=== PATIENT | female | born 1985 | race Caucasian/White ===

== ENCOUNTER 2018-04-15 16:38 | Emergency (ER) | payer OTHER, MEDICAID, SELFPAY ==
[2018-04-15 16:52] VITALS: BP 108/77; PULSE 110; RESP 20; TEMP 36.8; O2SAT 96; BMI 28.7
[2018-04-15 17:17] VITALS: TEMP 36.8
--- NOTE | 2018-04-15 18:36 | DI.US.S_ITS ---
PROCEDURE: US PELVIC COMPLETE INDICATIONS: CRAMPING, BLEEDING 2 WEEKS POST TECHNIQUE: Real-time scanning was performed of the pelvic organs, with image documentation. Additional endovaginal scanning was necessary due to incomplete visualization of the adnexal and endometrial structures by transabdominal scanning. COMPARISON: [facility] Ultrasound, US, US OB BIOPHYSICAL + UMBILICAL DOPPLER, 03/27/2018, 9:03. FINDINGS: Transabdominal scanning: Limited scanning through the kidneys shows no hydronephrosis. No pathologic free abdominal or pelvic fluid. Endovaginal scanning: Uterus: Uterus is normal in size at 3.8 x 6.0 x 8.0 cm. The endometrium measures 3 mm in combined thickness. A roughly 20 cc focus of low level echoes within internal fluid within the canal is present without internal vascularity. scar is present. Ovaries: Within normal limits IMPRESSION: 1. No evidence of retained products of conception. 2. Post surgical/post sequelae. Dictated by: Jg Blood M.D. on 04/15/2018 at 20:22 Approved by: Jg Blood M.D. on 04/15/2018 at 20:23
--- NOTE | 2018-04-15 18:38 | ED.FEVER ---
HPI - Fever General Chief Complaint: Fever Stated Complaint: FEVER, DIARRHEA Time Seen by Provider: 04/15/18 18:11 Source: patient Mode of arrival: ambulatory Limitations: no limitations History of Present Illness HPI Narrative: patient is a 32-year-old female presenting with diarrhea ongoing for the last 3 days. She has not had any vomiting. She has had body aches a but no documented fever. She has some abdominal cramping but no real pain. The diarrhea is watery nonbloody. She is status post 2 weeks of and tubal ligation done at [facility]. She has some scant vaginal bleeding all only when she wipes. She was having heavier bleeding earlier but that has improved. Currently afebrile. She denies any recent antibiotics. Other family members have also had diarrhea and vomiting illness. Onset (ago): day(s) (3) Related Data Previous Rx's Medication Instructions Recorded sulfamethoxazole-trimethoprim 1 tab PO BID #10 tab 04/15/18 [Bactrim DS] Allergies Allergy/AdvReac Type Severity Reaction Status Date / Time No Known Drug Allergies Allergy Verified 04/15/18 16:52 Review of Systems Review of Systems GENERAL: Denies chills, fatigue, malaise, fever, sweats, travel HEENT: Denies sinus pain, ear pain, sore throat, difficulty swallowing, neck pain RESPIRATORY: Denies dyspnea, cough, wheezing, hemoptysis, sputum. CARDIOVASCULAR: Denies chest pain, palpitations, orthopnea, edema GASTROINTESTINAL: See HPI : Denies dysuria, frequency, incontinence, hematuria, urinary retention, flank pain. MUSCULOSKELETAL: Denies weakness, joint pain, or bony pain SKIN: No rash, no erythema, no pruritus NEUROLOGIC: Denies weakness, dizziness, headache, numbness, change in speech, confusion PSYCHIATRIC: No concerning psychosocial issues. 12 point review of systems is negative except for those stated above and HPI [facility] Medical History Patient denies medical problems (Acute) Surgical History Status post (Acute) Social History Smoking Status: Current every day smoker Social History Smoking Status: Current every day smoker Exam Initial Vital Signs Initial Vital Signs: Vital Signs Temperature 98.2 F 04/15/18 16:52 Pulse Rate 110 H 04/15/18 16:52 Respiratory Rate 20 04/15/18 16:52 Blood Pressure 108/77 04/15/18 16:52 Pulse Oximetry 96 04/15/18 16:52 GENERAL: Well-appearing, well-nourished and in no acute distress. HEENT: Head atraumatic,EOMI, pupils reactive, moist mucous membranes CARDIOVASCULAR: Regular rate and rhythm without murmurs, rubs or gallops. RESPIRATORY: Breath sounds equal bilaterally, no wheezes rales or rhonchi. ABDOMEN: Soft, nontender. Normoactive bowel sounds all 4 quadrants. No guarding or rebound. incision site of clean and dry seems to be healing appropriately. His : No CVA tenderness EXTREMITIES: Normal range of motion, no clubbing or edema. Neurovascularly intact NEUROLOGICAL: Alert and oriented x4.Normal gait and speech. Cranial nerves II through XII grossly intact. SKIN: Warm, dry, no laceration, no petechiae, no rashes or lesions. Course Orders Ordered: ED Orders 04/15/18 18:36 US pelvic complete Stat 04/15/18 18:55 Complete Blood Count AUTO DIFF Stat Comprehensive Metabolic Panel Stat Lipase Stat Urine Culture Stat Urine Microscopic Stat Discontinued Medications Sodium Chloride (Normal Saline 0.9%) 1,000 mls @ 1,000 mls/hr IV CONT CIERA Last Infusion: 04/15/18 20:25 Dose: 1,000 mls/hr Admin: 04/15/18 19:08 Dose: 1,000 mls/hr Vital Signs - 8 hr 04/15/18 16:52 04/15/18 17:17 04/15/18 20:25 Temperature 98.2 F 98.2 F 98.2 F Pulse Rate 110 H 74 Respiratory Rate 20 19 Blood Pressure 108/77 Blood Pressure [Left Arm] 107/69 Pulse Oximetry 96 97 MDM - Fever Lab Data Attestation: I reviewed the patient's lab results. Result diagrams: 04/15/18 18:55 04/15/18 18:55 Lab Results 04/15/18 04/15/18 04/15/18 Range/Units 18:55 18:55 18:55 WBC 7.6 (4.5-11.0) X10^3/uL RBC 4.73 (4.0-5.2) X10^6/uL Hgb 15.9 (12.0-16.0) g/dL Hct 46.3 H (36-46) % MCV 97.9 (80-100) fL MCH 33.5 (26-34) PG MCHC 34.2 (30-36) % RDW 12.5 (11.6-14.8) % Plt Count 399 (150-400) X10^3/uL Neut % (Auto) 49.3 L (50-75) % Lymph % (Auto) 33.0 (25-40) % Cass % (Auto) 10.3 (3-14) % Eos % (Auto) 6.6 H (2-4) % Baso % (Auto) 0.8 (0-2) % Neut # (Auto) 3800 (6912-8037) /uL Lymph # (Auto) 2500 (0548-3185) /uL Cass # (Auto) 800 (0-900) /uL Eos # (Auto) 500 H (0-450) /uL Baso # (Auto) 100 (0-100) /uL Sodium 139 (137-145) mmol/L Potassium 3.9 (3.4-5.1) mmol/L Chloride 108 H (98-107) mmol/L Carbon Dioxide 20 L (22-32) mmol/L BUN 20 H (7-17) mg/dL Creatinine 1.00 (0.52-1.04) mg/dL Estimated GFR > 60.0 (>60) mL/min BUN/Creatinine Ratio 20.0 (6-22) Glucose 97 (70-100) mg/dL Calcium 8.9 (8.4-10.2) mg/dL Total Bilirubin 0.2 (0.2-1.3) mg/dL AST 38 H (14-36) IU/L ALT 59 H (9-52) IU/L Alkaline Phosphatase 112 (38-126) U/L Total Protein 7.5 (6.3-8.2) g/dL Albumin 4.3 (3.5-5.0) g/dL Globulin 3.2 (1.7-4.1) g/dL Albumin/Globulin Ratio 1.3 (1.0-2.8) Lipase 74 (23-300) U/L Urine RBC 5-10/hpf H (0-5/HPF) Urine WBC 10-30/hpf H (0-5/HPF) Ur Squamous Epith Cells 1-5 /hpf Ur Transition Epith Cell 1-5/hpf (0-5/HPF) Calcium Oxalate Crystal Few H (None) Urine Bacteria Moderate (10-30) H (None) Hyaline Casts 5-10/lpf (None) Urine Mucus 1+ H (Negative) Ur Culture Indicated? Specimen cultured Urine Dip Bedside Urine Glucose Negative Bedside Urine Bilirubin + 1 Bedside Urine Ketone +/- 5 Urine Specific [place] 1.030 Bedside Urine Occult Blood +++ Bedside Urine pH 5.5 Bedside Urine Protein +/- 15 Bedside Urine Urobilinogen - Negative Bedside Urine Nitrite - Negative Bedside Urine Leukocytes +/- 15 Esterase Imaging Data Pelvic ultrasound: Radiologist's impression: PROCEDURE: US PELVIC COMPLETE INDICATIONS: CRAMPING, BLEEDING 2 WEEKS POST TECHNIQUE: Real-time scanning was performed of the pelvic organs, with image documentation. Additional endovaginal scanning was necessary due to incomplete visualization of the adnexal and endometrial structures by transabdominal scanning. COMPARISON: [facility] Ul[facility]ound, US, US OB BIOPHYSICAL + UMBILICAL DOPPLER, 03/27/2018, 9:03. FINDINGS: Transabdominal scanning: Limited scanning through the kidneys shows no hydronephrosis. No pathologic free abdominal or pelvic fluid. Endovaginal scanning: Uterus: Uterus is normal in size at 3.8 x 6.0 x 8.0 cm. The endometrium measures 3 mm in combined thickness. A roughly 20 cc focus of low level echoes within internal fluid within the canal is present without internal vascularity. scar is present. Ovaries: Within normal limits IMPRESSION: 1. No evidence of retained products of conception. 2. Post surgical/post sequelae. Dictated by: Jg Blood M.D. on 04/15/2018 at 20:22 MDM Narrative Medical decision making narrative: Patient's abdomen is really quite soft and nontender. At this time I do not see any need for imaging. She is still having some scant vaginal bleeding ultrasound does not show any signs of retained products. She is tolerating oral fluids. She does have some bacteria in her urine she states that she does have some burning with urination. She had a [place] catheter placed 2 weeks ago during surgery. At this time I will treat her for UTI. Other signs and symptoms are consistent with gastroenteritis. Also other family members have had the same symptoms. Discharge Plan Departure Patient Disposition: Home Clinical Impression: Gastroenteritis, UTI (urinary tract infection), Viral infection Discharge Date/Time: 04/15/18 20:28 Interventions: ED Discharge Assessment Last Done: 04/15/18 20:35 Instructions: DI for Viral Gastroenteritis -- Adult, DI for Urinary Tract Infection (UTI) Activity Restrictions/Additional Instructions: *You have been diagnosed with gastroenteritis, UTI *What to do: increase fluid intake with Gatorade like substance, something with sugar and electrolytes to help be replaced or loss of fluid. I anticipate diarrhea should stop and is likely viral. you may require outpatient stool sample with your doctor if this continues *Continue to take medications as directed [At your request you're medications have been faxed to] *Follow up with your primary care provider in 2-3 days *Return to ER if you should have fever, inability to tolerate fluids, increasing pain or any new, worsening or concerning symptoms Prescriptions: New sulfamethoxazole-trimethoprim [Bactrim DS] 800-160 mg tablet 1 tab PO BID Qty: 10 RF: 0 Referrals: Sonyn Sosa MD [Primary Care Provider] -
[2018-04-15 19:07] LABS: Add Manual Diff / Slide Review NO; Basophils Absolute Auto 100 /uL (0-100); Basophils Percent Auto 0.8 % (0-2); Eosinophils Absolute Auto 500 /uL (0-450); Eosinophils Percent Auto 6.6 % (2-4); Hematocrit 46.3 % (36-46); Hemoglobin 15.9 g/dL (12.0-16.0); Lymphocytes Absolute Auto 2500 /uL (1100-4500); Mean Corpuscular HGB Conc 34.2 % (30-36); Mean Corpuscular Hemoglobin 33.5 PG (26-34); Mean Corpuscular Volume 97.9 fL (80-100); Monocytes Absolute Auto 800 /uL (0-900); Monocytes Percent Auto 10.3 % (3-14); Neutrophils Absolute Auto 3800 /uL (1500-7000); Neutrophils Percent Auto 49.3 % (50-75); Platelet Count 399 X10^3/uL (150-400); Red Blood Cell Count 4.73 X10^6/uL (4.0-5.2); Red Cell Distribution Width 12.5 % (11.6-14.8); White Blood Cell Count 7.6 X10^3/uL (4.5-11.0)
[2018-04-15] MEDS: SODIUM CHLORIDE 0.9% 1,000 ML 1000 ML IV (19:08)
[2018-04-15 19:19] LABS: RBC Urine 5-10/HPF (0-5/HPF); Squamous Epithelial Cell Urine 1-5 /HPF; Transitional Epi Cells Urine 1-5/HPF (0-5/HPF); WBC Urine 10-30/HPF (0-5/HPF)
[2018-04-15 19:20] LABS: Bacteria Urine Moderate (10-30); Calcium Oxalate Crystals Urine Few; Culture Indicated Urine Specimen Cultured; Hyaline Casts Urine 5-10/LPF; Mucus Urine 1+ (Negative)
[2018-04-15 19:21] LABS: Alanine Aminotransferase 59 IU/L (9-52); Albumin 4.3 g/dL (3.5-5.0); Albumin Globulin Ratio 1.3 (1.0-2.8); Alkaline Phosphatase 112 U/L (38-126); Aspartate Aminotransferase 38 IU/L (14-36); Bilirubin Total 0.2 mg/dL (0.2-1.3); Blood Urea Nitrogen 20 mg/dL (7-17); Calcium 8.9 mg/dL (8.4-10.2); Carbon Dioxide 20 mmol/L (22-32); Chloride 108 mmol/L (98-107); Estimated Glomerular Filt Rate > 60.0 mL/min (>60); Globulin 3.2 g/dL (1.7-4.1); Glucose 97 mg/dL (70-100); HEMOLYSIS < 15 (0-50); Lipase 74 U/L (23-300); Potassium 3.9 mmol/L (3.4-5.1); Sodium 139 mmol/L (137-145); Total Protein 7.5 g/dL (6.3-8.2)
[2018-04-15 20:25] VITALS: BP 107/69; PULSE 74; RESP 19; TEMP 36.8; O2SAT 97
== END 2018-04-15 20:28 | disposition home or self-care (01) ==
PROVIDERS: Emergency Provider Emergency Medicine; Family Provider Family Medicine; PCP Family Medicine
DX: K52.9 Noninfective gastroenteritis and colitis, unspecified (principal); N39.0 Urinary tract infection, site not specified; B34.9 Viral infection, unspecified
CPT/HCPCS: 36591; 76830; 76856; 80053; 81003; 81015; 83690; 85025; 87086; 96360; 99283; 99284